=== PATIENT | male | born 1965 | race African-American/Black ===

== ENCOUNTER 2016-10-14 16:30 | Emergency (ER) | payer BC ==
[~2016-10-14 16:30] MED LIST: ACETAMINOPHEN PO; ACETAMINOPHEN650 M1 PO; ALBUTEROL17 GM INH; ALEVE; AUGMENTIN PO; BACTRIM DS TABL1 TA1 PO; CIPRO PO; CLONIDINE HCL0.1 MG PO; ERYTHROMYCIN O3.5 GM OP; HCTZ PO; HUMULIN R100 U/ML SUBQ; HYDROCHLOROTHIA25 MG PO; IBUPROFEN PO; LANTUS100 U/ML SUBQ; LANTUS100 UNITS/ SUBQ; LIPITOR40 MG PO; LISINOPRIL PO; LOPRESSOR100 MG PO; LORTAB 5/500 TA1 TA1 PO; LOTREL PO; MEDROL4 MG/DOSE- PO; NORVASC PO; PEPCID AC20 MG PO; TRICOR; TRICOR PO; VICODIN 5/500 T1 TAB PO; ZITHROMAX PO; ZITHROMAX1 G/PKT PO
== END 2016-10-14 16:41 | disposition home or self-care (01) ==
LOC: CFTX 16:30
DX: Z76.0 Encounter for issue of repeat prescription (principal); I10 Essential (primary) hypertension; E11.9 Type 2 diabetes mellitus without complications; F17.210 Nicotine dependence, cigarettes, uncomplicated; Z98.890 Other specified postprocedural states; Z79.84 Long term (current) use of oral hypoglycemic drugs; Z79.899 Other long term (current) drug therapy
CPT/HCPCS: 82947; 99282